=== PATIENT | male | born 1985 | race African-American/Black ===

== ENCOUNTER 2020-11-26 23:29 | Emergency (ER) | payer MEDICAID ==
[~2020-11-26] VITALS: Ht 175.3 cm; Wt 73.0 kg
[2020-11-26 23:39] VITALS: BP 105/87
[2020-11-27] MEDS ORDERED: AMOX-494 MT (00:13)
[2020-11-27] MEDS ORDERED: T3 PO ×2 (00:13→00:14)
[2020-11-27] MEDS ORDERED: HYDROCODONE/ACETAMINOPHEN 5/325MG TABLET PO ONE (00:15)
== END 2020-11-27 00:35 | disposition home or self-care (01) ==
LOC: ER 23:29
DX: S02.5XXA Fracture of tooth (traumatic), initial encounter for closed fracture (principal); X58.XXXA Exposure to other specified factors, initial encounter; Y93.89 Activity, other specified; Y92.018 Other place in single-family (private) house as the place of occurrence of the external cause
CPT/HCPCS: 99283